=== PATIENT | male | born 2000 | race Caucasian/White ===

== ENCOUNTER 2020-02-16 09:57 | Emergency (ER) | payer OTHER ==
[~2020-02-16] VITALS: Ht 182.9 cm; Wt 77.1 kg
[~2020-02-16 09:57] MED LIST: GLUCOSAMINE HC500 MG PO; UNICOMPLEX M TA1 TA1 PO; VITAMINC500 PO
[2020-02-16 10:37] LABS: ABSOLUTE LYMPHOCYTES 1.4 thou/uL (0.8-5.3); ABSOLUTE MONOCYTES 0.7 thou/uL (0.0-1.2); ABSOLUTE NEUTROPHILS 7.7 thou/uL (1.6-8.1); BASOPHILS 0.3 %; EOSINOPHILS 0.3 %; HEMATOCRIT 40.7 % (42.0-52.0); HEMOGLOBIN 14.1 gm/dL (14.0-18.0); LYMPHOCYTES 14.1 %; MCH 30.6 pg (26.0-34.0); MCHC 34.5 g/dL (28.0-37.0); MCV 88.5 fL (80.0-100.0); MONOCYTES 7.3 %; MPV 7.5 fl. (7.2-11.1); NUCLEATED RBCS 0 /100WBC; PLATELET COUNT* 195 thou/uL (150-400); RDW-CV 12.4 % (10.5-14.5); WBC 9.9 thou/uL (4.0-11.0)
[2020-02-16 10:40] LABS: CALCIUM 9.6 mg/dL (8.5-10.1); CREATININE 1.1 mg/dL (0.6-1.3); POTASSIUM 3.8 mmol/L (3.5-5.1)
[2020-02-16 10:43] LABS: ALBUMIN 4.8 g/dL (3.4-5.0); TOTAL BILIRUBIN 0.6 mg/dL (<0.1-1.0)
[2020-02-16] MEDS ORDERED: FLEXERIL PO (12:25)
[2020-02-16] MEDS ORDERED: IBUPROFEN 800800 M1 PO (12:25)
[2020-02-16 13:22] VITALS: BP 121/70
--- NOTE | 2020-02-16 16:35 | EKG ---
[place] [address] ELECTROCARDIOGRAM REPORT Name: PETER SALAZAR Room: 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 Cutter: : 2000 Requested By: Douglas Piper Order Number: [id number] MD: Олег Guevara Measurements Intervals Admire Rate: 84 P: 63 MO: 146 QRS: 73 QRSD: 93 T: 59 QT: 332 QTc: 393 Interpretive Statements Sinus rhythm RSR' in V1 or V2, right VCD Baseline wander in lead(s) I,V2,V3,V4,V5,V6 No previous ECG available for comparison Electronically Signed On 02-16-2020 16:35:33 [employer] by Олег Guevara [email or web address] <ELECTRONICALLY SIGNED> By: Олег Guevara MD, FAC 02/16/20 1635 1008 1008 Олег Guevara MD, [facility] /EPI
== END 2020-02-16 13:23 | disposition home or self-care (01) ==
LOC: M.ERS 09:57
PROVIDERS: Emergency Medicine Emergency Medical Services
DX: R07.81 Pleurodynia (principal); Z20.828 Contact with and (suspected) exposure to other viral communicable diseases; J45.909 Unspecified asthma, uncomplicated; Z79.899 Other long term (current) drug therapy